=== PATIENT | female | born 1970 | race Caucasian/White ===

== ENCOUNTER 2023-01-14 10:01 | Observation (INO) ==
[2023-01-14 10:17] VITALS: BMI 20.5
--- NOTE | 2023-01-14 10:31 | DR.EXTPAIN ---
HPI Time seen Time Seen by Provider: 01/14/23 10:39 PCP Primary Care Physician: ANSELMO Complaint/Symptoms Chief Complaint Doctor Comments: 52 y/o female presents for evaluation. Having symptoms over the past several months. Having frequent episodes of double vision. Also feels that left leg gives out at times. Having frequent left sided headaches. Seen here by me 06/2022, with sine similar symptoms - blurred vision and right sided weakness then. W/u was unremarkable back then. Sees Dr Briones, last saw him last month, didn't address her issues with him then. Called the office today, was told to come to the ER. Denies Fever, chills, URI symptoms, bowel or bladder issues. Chief Complaint:: "EVERYTHING I SEE IS DOUBLE", LEFT LEG WEAKNESS ABOUT 2 MONTHS, WHICH CAUSED HER TO FALL. DOUBLE VISION IS "PERIODIC, IT COMES AND GOES". PT HAS SPOKEN WITH DR. BRIONES IN THE PAST AND WAS ADVISED TO COME TO ER IF NEEDED. PT STATES IF HER LEG GIVES OUT SHE CAN CRAWL. Self Treatment fo Chief Complaint: STARTED TAKING MOUNJARO ABOUT 8 MONTHS AGO AND HAS LOST DOWN TO HER IDEAL WEIGHT. STATES SHE WANTS TO STOP TAKING. 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 Family History History of Family Medical Conditions: Yes Family Medical History: Cancer and Hypertension Social History Does patient currently use any type of tobacco product: Yes Have you used tobacco products in the last 12 months: Yes Type of Tobacco Use: VAPE Does any household member use tobacco: No Alcohol Use: None Do you use any recreational Drugs:: No Lives With: Mom Lives Where: Home Travel Risk Coronavirus risk:travel/contact w/high risk person: No Has patient experienced Coronavirus symptoms: No Infectious screening In the last 2 months have you had wt loss of >10#?: NO Have you had fever, night sweats or hemotysis?: No Have you traveled outside the country in the last 6 months?: No Isolation: Standard ROS Review of Systems Constitutional: No Symptoms Reported Eyes: See HPI ENTM: No Symptoms Reported Respiratoy: No Symptoms Reported Cardiovascular: No Symptoms Reported Gastrointestinal/Abdominal: No Symptoms Reported Genitourinary: No Symptoms Reported Neurological: See HPI Musculoskeletal: No Symptoms Reported Integumentary: No Symptoms Reported Hematologic/Lymphatic: No Symptoms Reported All Other Systems: Reviewed and Negative PE Vital Signs Vitals: Temperature 98.5 F Pulse Rate 113 Respiratory Rate 16 Blood Pressure 106/53 Blood Pressure 131/79 O2 Sat by Pulse Oximetry 98 General General Appearance: Alert and In No Apparent Distress Head Head Exam: Normal Inspection Eyes Eye exam: PERRL and EOMI ENT ENT Exam: Normal Oropharynx, Mucous Membranes Moist and TM's Normal Bilaterally Neck Neck Exam: Normal Inspection and Full ROM; negative Tenderness Respiratory Respiratory Exam: Normal Lung Sounds Bilat; negative Accessory Muscle Use or Respiratory Distress Cardiovascular Cardiovascular Exam: Regular Rate, Normal Rhythm and Normal Heart Sounds Abdominal Exam Abdominal Exam: Normal Bowel Sounds and Soft; negative Tenderness Extremities Extremities Exam: Normal Inspection and Full ROM; negative Edema Back Back Exam: Normal Inspection Neurological Neurological Exam: Alert, Oriented X3, CN II-XII Intact and Other (+ normal finger to nose); negative Motor Sensory Deficit Skin Skin Exam: Warm and Dry COURSE Treatment Treatment: 52 y/o female with several months of persistent double vision, LLE giving out. PE benign at present. W/u initiated. 1412 - labs acceptable, in cluding CRP. Awaiting CTA brain results, grossly looks acceptable. Discussed with her attending, Dr Briones. He would like to admit her for observation, and obtain an MRI of the brain with contrast (unless CTA of the brain with an obvious abnormality). CTA brain acceptable. ROR Labs Reviewed Laboratory Results Reviewed?: Yes Result Diagrams: 01/14/23 11:33 01/14/23 11:33 Laboratory: WBC 5.8 X10^3/uL (3.6-10.0) 01/14/23 11:33 RBC 4.31 X10^6/uL (3.5-5.4) 01/14/23 11:33 Hgb 13.3 g/dL (12.0-16.0) 01/14/23 11:33 Hct 38.6 % (36.0-47.0) 01/14/23 11:33 MCV 89.6 fL (80.0-100.0) 01/14/23 11:33 MCH 30.9 pg (27.0-34.0) 01/14/23 11:33 MCHC 34.5 g/dL (33.0-35.0) 01/14/23 11:33 RDW 12.5 % (11.6-16.5) 01/14/23 11:33 Plt Count 159 X10^3/uL (150.0-450.0) 01/14/23 11:33 MPV 8.1 fL (7.4-11.0) 01/14/23 11:33 Neut % (Auto) 67.2 % (42.0-75.0) 01/14/23 11:33 Lymph % (Auto) 25.8 % (21.0-51.0) 01/14/23 11:33 [place] % (Auto) 6.4 % (0.0-13.0) 01/14/23 11:33 Eos % (Auto) 0.3 % (0.9-2.9) L 01/14/23 11:33 Baso % (Auto) 0.3 % (0.2-1.0) 01/14/23 11:33 Neut # (Auto) 3.9 x10^3/uL (2.2-4.8) 01/14/23 11:33 Lymph # (Auto) 1.5 X10^3/uL (1.3-2.9) 01/14/23 11:33 [place] # (Auto) 0.4 x10^3/uL (0.3-0.8) 01/14/23 11:33 Eos # (Auto) 0.0 x10^3/uL (0.0-0.2) 01/14/23 11:33 Baso # (Auto) 0.0 X10^3/uL (0.0-0.1) 01/14/23 11:33 Absolute Nucleated RBC 0.0 /100WBC 01/14/23 11:33 Sodium 138 mmol/L (136-145) 01/14/23 11:33 Corrected Sodium TNP 01/14/23 11:33 Potassium 4.1 mmol/L (3.5-5.1) 01/14/23 11:33 Chloride 101 mmol/L (98-107) 01/14/23 11:33 Carbon Dioxide 30.8 mmol/L (21-32) 01/14/23 11:33 BUN 12 mg/dL (7-18) 01/14/23 11:33 Creatinine 1.01 mg/dL (0.55-1.02) 01/14/23 11:33 Est GFR (MDRD) Af Amer > 60 (>60) 01/14/23 11:33 Est GFR (MDRD) Non-Af > 60 (>60) 01/14/23 11:33 Glucose 79 mg/dL (65-99) 01/14/23 11:33 Calcium 8.7 mg/dL (8.5-10.1) 01/14/23 11:33 Corrected Calcium TNP 01/14/23 11:33 Total Bilirubin 0.40 mg/dL (0.2-1.0) 01/14/23 11:33 AST 10 Units/L (15-37) L 01/14/23 11:33 ALT 22 Units/L (12-78) 01/14/23 11:33 Alkaline Phosphatase 82 Units/L (46-116) 01/14/23 11:33 C-Reactive Protein 1.40 mg/L (0-3.0) 01/14/23 11:33 Total Protein 7.4 g/dL (6.4-8.2) 01/14/23 11:33 Albumin 4.0 g/dL (3.4-5.0) 01/14/23 11:33 Globulin 3.4 g/dL (2.5-4.5) 01/14/23 11:33 Albumin/Globulin Ratio 1.2 Ratio (1.1-2.1) 01/14/23 11:33 Lipase 65 Units/L (73-393) L 01/14/23 11:33 TSH 3rd Generation 1.107 uIU/mL (0.358-3.74) 01/14/23 11:33 Specimen Type Clean catch urine 01/14/23 12:02 Urine Color Yellow (YELLOW) 01/14/23 12:02 Urine Appearance Hazy (CLEAR) 01/14/23 12:02 Urine pH 6.0 (5.0 - 8.0) 01/14/23 12:02 Ur Specific [place] 1.015 (1.000-1.030) 01/14/23 12:02 Urine Protein Negative (NEGATIVE) 01/14/23 12:02 Urine Glucose (UA) Negative (NEGATIVE) 01/14/23 12:02 Urine Ketones Negative (NEGATIVE) 01/14/23 12:02 Urine Blood 1+ (NEGATIVE) 01/14/23 12:02 Urine Nitrite Negative (NEGATIVE) 01/14/23 12:02 Urine Bilirubin Negative (NEGATIVE) 01/14/23 12:02 Urine Urobilinogen Normal (NORMAL) 01/14/23 12:02 Ur Leukocyte Esterase Negative (NEGATIVE) 01/14/23 12:02 Urine RBC 0-2 /HPF (0-3) 01/14/23 12:02 Urine WBC 0-2 /HPF (0-5) 01/14/23 12:02 Ur Squamous Epith Cells Many /HPF (NEGATIVE) 01/14/23 12:02 Amorphous Sediment Trace /HPF (NEGATIVE) 01/14/23 12:02 Urine Bacteria Trace /HPF (NEGATIVE) 01/14/23 12:02 Urine Mucus Few /HPF (NEGATIVE) 01/14/23 12:02 Ur Culture Indicated? No/not indicated 01/14/23 12:02 Opioid Opioid Risk Tool Age (Ulices box if 16-45): No History of Preadolescent Sexual Abuse: No Total: 0 Total Score Risk Category: Low Risk Copyright: Javier GONZALEZ predicting aberrant behaviors Discharge Plan Diagnosis Discharge Problem: Double vision, Left leg weakness Discharge Plan Patient Disposition: 09 ADMITTED INPATIENT Condition: Stable
[2023-01-14] MEDS ORDERED: NS 1,000 ML IV 1,000 ML IV ONE (10:51)
[2023-01-14] MEDS ORDERED: NS 1,000 ML IV 1,000 ML ONE (11:16)
[2023-01-14 11:43] LABS: BASOPHILS % (AUTO) 0.3 % (0.2-1.0); EOSINOPHILS % (AUTO) 0.3 % (0.9-2.9); HEMATOCRIT 38.6 % (36.0-47.0); HEMOGLOBIN 13.3 g/dL (12.0-16.0); LYMPHOCYTES # (AUTO) 1.5 X10^3/uL (1.3-2.9); LYMPHOCYTES % (AUTO) 25.8 % (21.0-51.0); MEAN CORPUSCULAR HEMOGLOBIN 30.9 pg (27.0-34.0); MEAN CORPUSCULAR HGB CONC 34.5 g/dL (33.0-35.0); MEAN CORPUSCULAR VOLUME 89.6 fL (80.0-100.0); MEAN PLATELET VOLUME 8.1 fL (7.4-11.0); MONOCYTES # (AUTO) 0.4 x10^3/uL (0.3-0.8); MONOCYTES % (AUTO) 6.4 % (0.0-13.0); NEUTROPHILS # (AUTO) 3.9 x10^3/uL (2.2-4.8); NEUTROPHILS % (AUTO) 67.2 % (42.0-75.0); PLATELET COUNT 159 X10^3/uL (150.0-450.0); RED BLOOD COUNT 4.31 X10^6/uL (3.5-5.4); RED CELL DISTRIBUTION WIDTH 12.5 % (11.6-16.5); WHITE BLOOD COUNT 5.8 X10^3/uL (3.6-10.0)
[2023-01-14 12:06] LABS: ALANINE AMINOTRANSFERASE 22 Units/L (12-78); ALKALINE PHOSPHATASE 82 Units/L (46-116); ASPARTATE AMINO TRANSFERASE 10 Units/L (15-37); BLOOD UREA NITROGEN 12 mg/dL (7-18); CALCIUM 8.7 mg/dL (8.5-10.1); CARBON DIOXIDE 30.8 mmol/L (21-32); CHLORIDE 101 mmol/L (98-107); CREATININE 1.01 mg/dL (0.55-1.02); GLUCOSE 79 mg/dL (65-99); LIPASE 65 Units/L (73-393); POTASSIUM 4.1 mmol/L (3.5-5.1); SODIUM 138 mmol/L (136-145); TOTAL PROTEIN 7.4 g/dL (6.4-8.2); TSH (3RD GENERATION) 1.107 uIU/mL (0.358-3.74); eGFR NON BLACK RACES > 60 (>60)
[2023-01-14 12:10] LABS: BILIRUBIN,URINE NEGATIVE (NEGATIVE); BLOOD/HEMOGLOBIN,URINE 1+ (NEGATIVE); GLUCOSE, URINE NEGATIVE (NEGATIVE); KETONES,URINE NEGATIVE (NEGATIVE); LEUKOCYTE ESTERASE ,URINE NEGATIVE (NEGATIVE); NITRITES,URINE NEGATIVE (NEGATIVE); PROTEIN,URINE NEGATIVE (NEGATIVE); UROBILINOGEN,URINE NORMAL (NORMAL)
[2023-01-14 12:23] LABS: APPEARANCE,URINE HAZY (CLEAR); BACTERIA,URINE TRACE /HPF (NEGATIVE); COLOR,URINE YELLOW (YELLOW); RBC,URINE 0-2 /HPF (0-3); SQUAMOUS EPITHELIAL CELL,UR MANY /HPF (NEGATIVE)
[2023-01-14] MEDS ORDERED: NS 100 ML IV 100 ML ONE (12:44)
--- NOTE | 2023-01-14 14:54 | CT ---
HISTORYDOUBLE VISION, LEFT SIDED HEADACHES. Evaluate for cerebral vascular occlusive disease.STUDYBRAIN CTACOMPARISONHead CT 06/26/2022TECHNIQUEMultiple CT axial images of the head were obtained before and after using IV contrast. 3D reconstructions utilizing axial MIPS imaging was performed and reviewed. Dose reduction techniques including Automated Exposure Control (AEC) and adjustment of mA and kV were utilized.Stenoses are measured using NASCET criteria.FINDINGSWithout contrast: Only minimal age related changes are present. Godinez and white matter have normal differentiation.There is no mass, shift, or hemorrhage. Cerebellar tonsils are at an appropriate level. No fluid in the sinuses or mucosal thickening to suggest sinusitis. There is no mastoid effusion.With contrast: Vertebral arteries are equal in size. The basilar artery is patent and gives rise to large bilateral posterior cerebral arteries.A tiny right posterior communicating artery is identified. No left posterior communicating artery is seen. Anterior communicating artery is normal.Distal cervical segment internal carotid arteries are patent. No significant carotid siphon disease or stenosis.Anterior cerebral and middle cerebral arteries are widely patent.There is no large vessel occlusion. No aneurysm or arteriovenous malformation.IMPRESSION1. No significant occlusive diseaseElectronically signed by: Adama Rose (Jan 14, 2023 14:53:10)
[2023-01-14] MEDS ORDERED: TIRZEPATIDE 10 MG/0.5 ML SUBCUT SCH (15:51)
--- NOTE | 2023-01-14 17:08 | MRI ---
HISTORYconfusion, extremity weakness.brSTUDYBRAIN W W/O CONCOMPARISONCT scan dated 01/14/2023.TECHNIQUEMultiplanar multi-sequence MRI of the brain was obtained. Sagittal T1, axial T1, axial T2, axial flair images, coronal T1, sagittal T1 post contrast, coronal T1 postcontrast, axial T1 postcontrast images were obtained.FINDINGSThe midline structures appear intact. The posterior fossa is unremarkable. The sulcal markings of the brain are normal in their appearance. Normal jacobs-white differentiation is maintained. No evidence for intraparenchymal hemorrhage or mass can be identified. No extra-axial fluid collections or subarachnoid hematoma can be seen. Evaluation of the diffusion weighted images demonstrates no evidence for acute ischemic change. The cerebral pontine angle is normal in its contour without evidence for mass. The ventricular system appears symmetric and nondilated.Postcontrast enhancement demonstrates no evidence for an enhancing lesion such as mass or vascular malformation.IMPRESSIONUnremarkable MRI of the brain with and without contrast.Electronically signed by: Chevy Salas (Jan 14, 2023 17:07:30)
[2023-01-14] MEDS: KLONOPIN TAB 1 MG PO SCH ×2 (19:13→21:20)
[2023-01-14] MEDS ORDERED: PATIENT'S HOME MEDICATION (Dextroamphetamine-Amphetamine 20 mg tablet) PO SCH (21:00)
[2023-01-14] MEDS: LAMICTAL TAB 100 MG PO SCH (21:19)
[2023-01-15 06:36] LABS: BASOPHILS % (AUTO) 0.1 % (0.2-1.0); EOSINOPHILS % (AUTO) 0.8 % (0.9-2.9); HEMATOCRIT 34.1 % (36.0-47.0); LYMPHOCYTES # (AUTO) 1.8 X10^3/uL (1.3-2.9); LYMPHOCYTES % (AUTO) 28.3 % (21.0-51.0); MEAN CORPUSCULAR HEMOGLOBIN 31.3 pg (27.0-34.0); MEAN CORPUSCULAR HGB CONC 35.2 g/dL (33.0-35.0); MEAN PLATELET VOLUME 8.5 fL (7.4-11.0); MONOCYTES # (AUTO) 0.4 x10^3/uL (0.3-0.8); MONOCYTES % (AUTO) 6.7 % (0.0-13.0); NEUTROPHILS # (AUTO) 4.1 x10^3/uL (2.2-4.8); NEUTROPHILS % (AUTO) 64.1 % (42.0-75.0); PLATELET COUNT 141 X10^3/uL (150.0-450.0); RED BLOOD COUNT 3.84 X10^6/uL (3.5-5.4); RED CELL DISTRIBUTION WIDTH 12.5 % (11.6-16.5); WHITE BLOOD COUNT 6.4 X10^3/uL (3.6-10.0)
[2023-01-15 07:04] LABS: ALANINE AMINOTRANSFERASE 26 Units/L (12-78); ALBUMIN 3.3 g/dL (3.4-5.0); ALKALINE PHOSPHATASE 77 Units/L (46-116); ASPARTATE AMINO TRANSFERASE 13 Units/L (15-37); BLOOD UREA NITROGEN 12 mg/dL (7-18); CALCIUM 8.2 mg/dL (8.5-10.1); CHLORIDE 104 mmol/L (98-107); COR CA(FOR HYPOALB) 8.8 mg/dL (8.5-10.1); CREATININE 0.86 mg/dL (0.55-1.02); GLUCOSE 88 mg/dL (65-99); POTASSIUM 3.9 mmol/L (3.5-5.1); SODIUM 140 mmol/L (136-145); TOTAL PROTEIN 6.2 g/dL (6.4-8.2); eGFR NON BLACK RACES > 60 (>60)
[2023-01-15] MEDS: LAMICTAL TAB 100 MG PO SCH (08:32)
[2023-01-15 08:38] VITALS: BP 106/53; PULSE 99; TEMP 98.9; O2SAT 99
[2023-01-15] MEDS ORDERED: DESVENLAFAXINE SUCCINATE PO SCH ×2 (09:00→21:00)
[2023-01-15] MEDS ORDERED: ABILIFY PO SCH (09:00)
--- NOTE | 2023-01-15 14:36 | DR.CARTERS ---
Short Stay Summary - Admission Date Date of Admission: 01/14/23 - Discharge Date Discharge Date: 01/15/23 - Admission Diagnoses (1) Blurred vision Status: Acute (2) Left leg weakness Status: Acute (3) Hypotension Status: Acute (4) Anxiety Status: Acute (5) Depression Status: Acute - Hospital Course Hospital Course: IS A 52 YEAR OLD PATIENT OF OURS. SHE PRESENTED TO THE ER WITH COMPLAINTS OF FREQUENT EPISODES OF DOUBLE VISION, LEFT SIDED HEADACHES, AND LEFT LEG WEAKNESS. HER SYMPTOMS HAVE BEEN ONGOING SINCE MAY 2022. SHE HAD A NEGATIVE WORK-UP IN JUNE 2022. SHE REPORTED THAT DOUBLE/BLURRED VISION IS INTERMITTENT. SHE REPORTS STARTING MOUNJARO FOR WEIGHT LOSS ABOUT 8 MONTHS AGO FOR WEIGHT LOSS. SHE IS NOT DIABETIC. SHE REPORTED THAT SHE HAS LOST DOWN TO HER IDEAL WEIGHT AND IS GOING TO STOP TAKING IT. SHE ALSO RECENTLY STARTED TAKING CYCLOBENZAPRINE ABOUT A MONTH AGO FOR STRESS IN THE BACK AND NECK. SHE LAST TOOK A CYCLOBENZAPRINE TWO DAYS AGO. HER PMH INCLUDES: ANEMIA, ANXIETY, DEPRESS ION, HYPERTENSION, . ON ARRIVAL TO THE HOSPITAL, HER VITALS WERE: 98.5-113-16-98%-106/53. LABS WERE OBTAINED. WBC 5.8, RBC 4.31, HGB 13.3, HCT 38.6, PLT COUNT 159, SODIUM 138, POTASSIUM 4.1, CHLORIDE 101, CARBON DIOXIDE 30.8, BUN 12, CREATININE 1.01, GLUCOSE 79, CALCIUM 8.7, AST 10, ALT 22, ALK PHOS 82, CRP 1.40, TOTAL PROTEIN 7.4, ALBUMIN 4.0, LIPASE 65, TSH 3RD GENERATION 1.107. A URINALYSIS WAS OBTAINED AND REVEALED: WBC 0-2, RBC 0-2, LEUKOCYTES NEGATIVE, BACTERIA TRACE. A BRAIN CTA WAS OBTAINED AND REVEALED: NO SIGNIFICANT OCCLUSIVE DISEASE. A BRAIN MRI WAS OBTAINED AND REVEALED: UNREMARKABLE MRI OF THE BRAIN WITH AND WITHOUT CONTRAST. IN THE ER, SHE WAS GIVEN A NORMAL SALINE BOLUS X 2 LITERS. SHE WAS ADMITTED TO THE HOSPITAL OBSERVATION STATUS FOR FURTHER EVALUATION AND TREATMENT OF DOUBLE VISION AND LEFT LOWER EXTREMITY WEAKNESS. WE RESUMED HER HOME MEDICATIONS OF PRISTIQ 100MG DAILY, ADDERALL 20MG BID, ABILIFY 15MG DAILY, CLONAZEPAM 1MG QID, LAMOTRIGINE 150MG BID, DE SVENLAFAXINE 100MG HS. OTHERWISE, WE PLANNED TO FOLLOW UP WITH AM LABS AND CONTINUE TO MONITOR. ON THE MORNING FOLLOWING ADMISSION, PATIENT IS ALERT AND ORIENTED, SITTING UP ON THE COUCH ON MORNING ROUNDS. SHE DENIES HAVING SYMPTOMS UPON MORNING ROUNDS OR SINCE ADMISSION. SHE HAS BEEN SLIGHTLY HYPOTENSIVE, BUT HAS OTHERWISE HAD AN UNEVENTFUL NIGHT. ON EXAMINATION, HEART IS REGULAR IN RATE AND RHYTHM. BILATERAL LUNGS ARE CLEAR TO AUSCULTATION. ABDOMEN IS FLAT, SOFT, AND NON-TENDER WITH NORMAL BOWEL SOUNDS NOTED IN ALL QUADRANTS. GOOD MOVEMENT TO UPPER AND LOWER EXTREMITIES WITH NO EDEMA NOTED. HER VITALS THIS MORNING ARE: 98.9-99-18-99%-106/53. LABS WERE OBTAINED. WBC 6.4, RBC 3.84, HGB 12.0, HCT 34.1, PLT COUNT 141, SODIUM 140, POTASSIUM 3.9, CHLORIDE 104, CARBON DIOXIDE 26.0, BUN 12, CREATININE 0.86, GLUCOSE 88, CALCIUM 8.2, TOTAL BILI 0.20, AST 13, ALT 26, ALK PHOS 77, TOTAL PROTEIN 6.2, ALBUMIN 3.9, A1C 4.9. WE PLANNED FOR DISCHARGE. INSTRUCTIONS FOR MEDICATIONS AND FOLLOW-UP WERE DISCUSSED WITH PATIENT. SHE VERBALIZED UNDERSTANDING OF ALL ORDERS. WE INSTRUCTED HER TO NOT TAKE THE METOPROLOL OR MOUNJARO UNTIL WE FOLLOW-UP WITH HER IN THE OFFICE NEXT WEEK. SHE WAS DISCHARGED HOME WITH HER FAMILY IN STABLE CONDITION. TIME SPENT ON CLINICAL ASSESSMENT, REVIEWING LABS AND IMAGING, DECISION MAKING, DISCHARGE INSTRUCTIONS, PREPARING DISCHARGE PAPERS, AND DOCUMENTATION GREATER THAN 75 MINUTES. - Discharge Medications Discharge Medications: Home Medication List aripiprazole 15 mg tablet 15 mg PO QDAY 01/14/23 [History] clonazepam 1 mg tablet 2 mg PO HS 01/14/23 [History] cyclobenzaprine 5 mg tablet 5 mg PO BID PRN 01/14/23 [History] dextroamphetamine-amphetamine 20 mg tablet 20 mg PO BID 01/14/23 [History] lamotrigine 150 mg tablet 150 mg PO BID 01/14/23 [History] Prescriptions: - Discharge Plan Disposition: 01 HOME, SELF-CARE Condition: Stable - Follow up/Referrals Follow up/Referrals: Santo Stafford [Primary Care Provider] - 01/22/23 11:30 am - Instructions Instructions: Blurred Vision, Adult, Fall Prevention in the Home, Adult, [id number], Fatigue, Weakness, [id number] Additional Instructions: HOLD MOUNJARO AND METOPROLOL UNTIL FOLLOW UP VISIT WITH DIET TOLERATED. ACTIVITY TOLERATED. Forms: Excuse From Work or School
[2023-01-15] MEDS ORDERED: KLONOPIN TAB 1 MG PO PRN (21:00)
== END 2023-01-15 10:40 | disposition home or self-care (01) ==
LOC: MED/SURG 10:01 → ER 10:01 → MED/SURG 15:34
PROVIDERS: ADMIT Internal Medicine; ATTEND Internal Medicine
DX: R53.1 Weakness; H53.2 Diplopia; I95.89 Other hypotension; F32.89 Other specified depressive episodes; Z91.81 History of falling; R79.89 Other specified abnormal findings of blood chemistry; R51.9 Headache, unspecified; F41.8 Other specified anxiety disorders; I10 Essential (primary) hypertension; Z79.899 Other long term (current) drug therapy